=== PATIENT | male | born 1980 | race Caucasian/White ===

== ENCOUNTER 2019-06-05 13:06 | Outpatient (REF) | payer MEDICAID, SELFPAY ==
[2019-06-05 19:24] LABS: Bacteria Rare HPF (Negative); C & S Indicated? C&S Done As Ordered; Casts Negative LPF (Negative); Crystals Few Calcium Oxalate HPF (Negative); Epithelial Cells Rare HPF (Negative); Mucus Negative (Negative); Other Cells Rare Renal (Negative); RBC Negative HPF (0-2); WBC 0-2 HPF (0-5)
== END 2019-06-05 13:26 ==
LOC: NCHCN 13:06
PROVIDERS: PCP Specialist/Technologist Athletic Trainer; Visit Provider Specialist/Technologist Athletic Trainer
DX: R30.0 Dysuria (principal)
CPT/HCPCS: 81015; 87086

== ENCOUNTER 2019-06-18 09:53 | Outpatient (REF) | payer MEDICAID, SELFPAY ==
[2019-06-18 21:48] LABS: Calculated LDL 118 mg/dL (<100); Cholesterol 175 mg/dL (<200); HDL Cholesterol 32 mg/dL (40-60); Triglyceride 126 mg/dL (<150)
== END 2019-06-18 10:13 ==
LOC: NCHCN 09:53
PROVIDERS: PCP Specialist/Technologist Athletic Trainer; Visit Provider Specialist/Technologist Athletic Trainer
DX: E11.9 Type 2 diabetes mellitus without complications (principal); G43.109 Migraine with aura, not intractable, without status migrainosus
CPT/HCPCS: 80061

== ENCOUNTER 2019-11-02 13:29 | Outpatient (REF) | payer MEDICAID, SELFPAY ==
[2019-11-02 20:54] LABS: Anion Gap 9.9 mmol/L (3-11); BUN 10 mg/dL (7-18); CO2 27.1 mmol/L (21.0-32.0); CREATININE 1.06 mg/dL (0.70-1.30); Chloride 101 mmol/L (98-107); Glucose 115 mg/dL (74-106); Potassium 4.6 mmol/L (3.5-5.1); Sodium 138 mmol/L (136-145)
== END 2019-11-02 13:49 ==
LOC: NCHCN 13:29
PROVIDERS: PCP Specialist/Technologist Athletic Trainer; Visit Provider Nurse Practitioner Family
DX: E11.9 Type 2 diabetes mellitus without complications (principal); I10 Essential (primary) hypertension
CPT/HCPCS: 80048

== ENCOUNTER 2021-02-21 09:00 | Outpatient (REF) | payer MEDICAID, SELFPAY ==
[2021-02-21 15:32] LABS: Hemoglobin A1C 6.2 % (<5.7)
[2021-02-21 15:34] LABS: Anion Gap 5.8 mmol/L (3-11); BUN 11 mg/dL (7-18); CO2 30.2 mmol/L (21.0-32.0); CREATININE 1.1 mg/dL (0.70-1.30); Chloride 105 mmol/L (98-107); Glucose 112 mg/dL (74-106); Sodium 141 mmol/L (136-145)
== END 2021-02-21 09:01 | disposition home or self-care (01) ==
LOC: NCHCN 09:00
PROVIDERS: PCP Specialist/Technologist Athletic Trainer; Visit Provider Nurse Practitioner Family
DX: E11.9 Type 2 diabetes mellitus without complications (principal); I10 Essential (primary) hypertension
CPT/HCPCS: 80048; 83036

== ENCOUNTER 2021-09-04 07:56 | Outpatient (REF) | payer MEDICAID, SELFPAY ==
[2021-09-04 16:04] LABS: COMMENT (LAB VIEW ONLY) 144.95 mg/dL; Microalb ug/mg Crea 5.7 ug/mg Cr
[2021-09-04 16:17] LABS: Bacteria Negative HPF (Negative); C & S Indicated? No; Crystals Negative HPF (Negative); Epithelial Cells Rare HPF (Negative); Mucus Negative (Negative); RBC Negative HPF (0-2); WBC 0-2 HPF (0-5)
== END 2021-09-04 07:57 | disposition home or self-care (01) ==
LOC: NCHCN 07:56
PROVIDERS: PCP Specialist/Technologist Athletic Trainer; Visit Provider Nurse Practitioner Family
DX: E11.9 Type 2 diabetes mellitus without complications (principal)
CPT/HCPCS: 81015; 82043; 82570

== ENCOUNTER 2021-09-05 07:59 | Outpatient (REF) | payer MEDICAID, SELFPAY ==
[2021-09-05 17:04] LABS: HCT 49.2 % (40.0-50.0); HGB 15.9 g/dL (13.5-17.5); MCH 31.1 pg (27.0-33.0); MCHC 32.3 % (32.0-36.0); MCV 96.1 fL (80-95); MPV 11.2 fL (8.0-11.0); Platelet Count 329 10^3/uL (130-400); RBC 5.12 10^6/uL (4.36-5.78); RDW 12.9 % (11.8-14.1); RDW-SD 46.3 fL; WBC 9.04 10^3/uL (4.4-10.8)
[2021-09-05 17:14] LABS: Anion Gap 7.2 mmol/L (3-11); BUN 10 mg/dL (7-18); CO2 27.8 mmol/L (21.0-32.0); Calcium 8.8 mg/dL (8.5-10.1); Calculated LDL 150 mg/dL (<100); Chloride 103 mmol/L (98-107); Cholesterol 223 mg/dL (<200); Glucose 123 mg/dL (74-106); HDL Cholesterol 42 mg/dL (40-60); Sodium 138 mmol/L (136-145); Triglyceride 158 mg/dL (<150)
[2021-09-05 17:23] LABS: Uric Acid 5.7 mg/dL (3.5-7.2)
[2021-09-05 17:39] LABS: Hemoglobin A1C 6.6 % (<5.7)
== END 2021-09-05 08:00 | disposition home or self-care (01) ==
LOC: NCHCN 07:59
PROVIDERS: PCP Specialist/Technologist Athletic Trainer; Visit Provider Nurse Practitioner Family
DX: E11.9 Type 2 diabetes mellitus without complications (principal)
CPT/HCPCS: 80048; 80061; 85027; 83036; 84550

== ENCOUNTER 2021-12-04 14:49 | Outpatient (REF) | payer MEDICAID, SELFPAY ==
[2021-12-04 16:32] LABS: Calculated LDL 85 mg/dL (<100); Cholesterol 157 mg/dL (<200); HDL Cholesterol 44 mg/dL (40-60); Triglyceride 142 mg/dL (<150)
[2021-12-04 16:42] LABS: Hemoglobin A1C 6.7 % (<5.7)
== END 2021-12-04 14:50 | disposition home or self-care (01) ==
LOC: NCHCN 14:49
PROVIDERS: PCP Specialist/Technologist Athletic Trainer; Visit Provider Nurse Practitioner Family
DX: Z00.00 Encounter for general adult medical examination without abnormal findings (principal); E11.9 Type 2 diabetes mellitus without complications
CPT/HCPCS: 80061; 83036

== ENCOUNTER 2022-09-17 10:09 | Outpatient (REF) | payer MEDICAID, SELFPAY ==
[2022-09-17 17:30] LABS: ALT 119 U/L (16-63); AST 60 U/L (15-37); Albumin 3.8 g/dL (3.4-5.0); Alkaline Phosphatase 57 U/L (46-116); Anion Gap 6.9 mmol/L (3-11); BUN 11 mg/dL (7-18); Bilirubin, Total 0.3 mg/dL (0.2-1.0); CO2 29.1 mmol/L (21.0-32.0); CREATININE 1.2 mg/dL (0.70-1.30); Calcium 8.7 mg/dL (8.5-10.1); Calculated LDL 82 mg/dL (<100); Chloride 103 mmol/L (98-107); Cholesterol 144 mg/dL (<200); Estimated GFR 77.92 (mL/min/1.73m2); Glucose 117 mg/dL (74-106); HDL Cholesterol 36 mg/dL (40-60); Hemoglobin A1C 6.9 % (<5.7); Sodium 139 mmol/L (136-145); Total Protein 7.8 g/dL (6.4-8.2); Triglyceride 132 mg/dL (<150)
== END 2022-09-17 10:10 | disposition home or self-care (01) ==
LOC: NCHCN 10:09
PROVIDERS: PCP Specialist/Technologist Athletic Trainer; Visit Provider Nurse Practitioner Family
DX: E11.9 Type 2 diabetes mellitus without complications (principal); E78.5 Hyperlipidemia, unspecified
CPT/HCPCS: 80053; 80061; 83036

== ENCOUNTER 2023-02-25 17:04 | Outpatient (REF) | payer MEDICAID, SELFPAY ==
--- NOTE | 2023-02-25 13:40 | ORMUBX_PTH ---
PATIENT: Shyam Britton LOC: [facility] #:[id number] AGE/SX: 43/M ROOM: RE02/25/[address]: Shari Medina : 1980 BED: DIS: 02/25/2023 SPEC #: [id number] RECD: 02/25/23 18:16 STATUS: JAZLYN REQ #: [id number] KAY: 02/25/23 13:[address]: Shari Medina DEPT: Surgical Specimen RECD BY: Lucinda Jones ENTERED: 02/25/23 18:18 SP TYPE: ORMUBX OTHR DR: Manjula Ponce Tissues: 1 - MUCOSA, NOS Procedures: GROSS AND MICRO LEVEL 4 Comments: [id number]
== END 2023-02-25 17:05 | disposition home or self-care (01) ==
LOC: NCHCN 17:04
PROVIDERS: PCP Nurse Practitioner Family; Visit Provider Registered Nurse Maternal Newborn
DX: K13.6 Irritative hyperplasia of oral mucosa (principal)
CPT/HCPCS: 88305

== ENCOUNTER 2023-11-18 12:52 | Outpatient (REF) | payer MEDICAID, SELFPAY ==
[2023-11-18 15:19] LABS: Abs Immature Grans 0.03 10^3/uL (0.0-0.06); Absolute Basophil Count 0.05 10^3/uL (0.0-0.2); Absolute Eosinophil Count 0.13 10^3/uL (0.0-0.7); Absolute Lymphocyte Count 2.76 10^3/uL (1.2-3.4); Absolute Monocyte Count 1.01 10^3/uL (0.1-0.8); Absolute Neutrophil Count 4.22 10^3/uL (1.2-6.7); Basophils % 0.6 %; Eosinophils % 1.6 %; HCT 50.6 % (40.0-50.0); HGB 16.9 g/dL (13.5-17.5); Immature Grans % 0.4 %; Lymphocytes % 33.7 %; MCH 31.9 pg (27.0-33.0); MCHC 33.4 % (32.0-36.0); MCV 96 fL (80-95); Monocytes % 12.3 %; Neutrophils % 51.4 %; Platelet Count 307 10^3/uL (130-400); RDW 12.9 % (11.8-14.1); RDW-SD 45.9 fL
[2023-11-18 15:53] LABS: Calculated LDL 90 mg/dL (<100); Cholesterol 157 mg/dL (<200); HDL Cholesterol 45 mg/dL (40-60); Triglyceride 110 mg/dL (<150)
[2023-11-21 17:05] LABS: Testosterone, Total 526 ng/dL (240-950)
== END 2023-11-18 12:53 | disposition home or self-care (01) ==
LOC: NCHCN 12:52
PROVIDERS: PCP Nurse Practitioner Family; Visit Provider Nurse Practitioner Family
DX: E78.5 Hyperlipidemia, unspecified (principal); E11.9 Type 2 diabetes mellitus without complications; R53.83 Other fatigue
CPT/HCPCS: 80061; 84403; 84443; 85025

== ENCOUNTER 2024-02-14 10:10 | Outpatient (REF) | payer MEDICAID, SELFPAY ==
[2024-02-14 16:14] LABS: ALT 111 U/L (16-63); AST 65 U/L (15-37); Alkaline Phosphatase 59 U/L (46-116); Anion Gap 11.2 mmol/L (3-11); BUN 14 mg/dL (7-18); Bilirubin, Total 0.64 mg/dL (0.2-1.0); CO2 24.8 mmol/L (21.0-32.0); CREATININE 1.1 mg/dL (0.70-1.30); Calcium 9.2 mg/dL (8.5-10.1); Chloride 104 mmol/L (98-107); Estimated GFR 85.95 (mL/min/1.73m2); Glucose 128 mg/dL (74-106); Potassium 4.5 mmol/L (3.5-5.1); Sodium 140 mmol/L (136-145); Total Protein 8.4 g/dL (6.4-8.2)
== END 2024-02-14 10:11 | disposition home or self-care (01) ==
LOC: NCHCN 10:10
PROVIDERS: PCP Nurse Practitioner Family; Visit Provider Nurse Practitioner Family
DX: E78.5 Hyperlipidemia, unspecified (principal)
CPT/HCPCS: 80053